=== PATIENT | female | born 1985 | race African-American/Black ===

== ENCOUNTER → 2017-09-23 | Emergency (ER) | payer OTHER ==
[~2017-09-23] VITALS: Ht 157.5 cm; Wt 61.2 kg
[~2017-09-23] MED LIST: COUMADIN5 MG; COUMADIN7.5 MG; DECADRON P4 MG/ML-30 IH; DICY20TA; ENDOCET 5/325 T1 TAB PO; OMEPRAZOLE20 MG; PERCOCET 5/3251 TAB PO; TORADOL30 MG/ML IJ; TRAMADOL HCL50 MG PO; ULTRACET PO; [UNRECOGNIZED DRUG - OTHER]; [UNRECOGNIZED DRUG - OTHER]
== END | disposition home or self-care (01) ==
LOC: ER 20:32
DX: S90.122A Contusion of left lesser toe(s) without damage to nail, initial encounter (principal); W22.8XXA Striking against or struck by other objects, initial encounter; Y93.89 Activity, other specified; Y92.098 Other place in other non-institutional residence as the place of occurrence of the external cause; Y99.8 Other external cause status

== ENCOUNTER → 2018-03-01 | Emergency (ER) | payer OTHER ==
[~2018-03-01] VITALS: Ht 157.5 cm; Wt 65.8 kg
== END | disposition home or self-care (01) ==
LOC: ER 20:34
DX: R22.31 Localized swelling, mass and lump, right upper limb (principal); M79.631 Pain in right forearm

== ENCOUNTER → 2018-12-23 | Emergency (ER) | payer OTHER ==
[~2018-12-23] VITALS: Ht 157.5 cm; Wt 62.6 kg
== END | disposition left against medical advice (07) ==
LOC: ER 14:17
DX: Z53.20 Procedure and treatment not carried out because of patient's decision for unspecified reasons (principal)

== ENCOUNTER 2019-11-21 14:05 | Emergency (ER) | payer OTHER ==
[~2019-11-21] VITALS: Ht 157.5 cm; Wt 54.4 kg
== END 2019-11-21 17:23 | disposition home or self-care (01) ==
LOC: ER 14:05
DX: G24.3 Spasmodic torticollis (principal)

== ENCOUNTER 2021-03-29 13:28 | Emergency (ER) | payer OTHER ==
[~2021-03-29] VITALS: Ht 157.5 cm; Wt 56.7 kg
== END 2021-03-29 18:58 | disposition home or self-care (01) ==
LOC: ER 13:28
DX: M16.11 Unilateral primary osteoarthritis, right hip (principal); M54.5 Low back pain